=== PATIENT | male | born 1970 | race Caucasian/White ===

== ENCOUNTER 2021-04-07 15:29 | Outpatient (CLI) | payer OTHER, SELFPAY ==
--- NOTE | ~2021-04-07 | CT_ITS ---
EXAMINATION: CT soft tissue neck w con EXAM DATE: 04/07/2021 15:52 INDICATION: Left tonsillar mass . TECHNIQUE: Spiral CT of the neck was performed following intravenous injection of 75 mL Omnipaque 350 . Axial, coronal and sagittal images were reviewed. The dose-length product (DLP) for this examinat ion was 400.82 mGy-cm. The exposure was tailored according to patient size (auto mA exposure control ), and iterative reconstruction (ASIR) was used as additional dose reduction technique. There is no prior study for comparison. FINDINGS: The left tonsil is significantly enlarged, measuring 3.8 x 3.2 cm. The nasopharynx is unrem arkable. Largest lymph node identified is in the left internal jugular chain, level 2 measuring 1.5 x 1.1 cm. There are several other level 2 lymph nodes adjacent to it that are within normal size limit s but more prominent than contralateral side. The thyroid gland is unremarkable. The submandibular and parotid glands are symmetric. The superior mediastinum is unremarkable. The airway is unre markable. Parapharyngeal and pre-glottic fat planes are preserved. The opacified vasculature is p atent. The orbits are unremarkable. Mild ethmoid and maxillary sinus mucoperiosteal thickening. Lung apices are clear. There is mild to moderate cervical spondylosis. IMPRESSION: 1. Diffuse enlargement of left tonsil. Differential diagnosis includes squamous cell cancer, lymphoma . ENT consult for histologic correlation indicated. 2. Left level 2 lymphadenopathy. Reviewed, dictated and finalized at location A. IMPRESSION: 1. Diffuse enlargement of left tonsil. Differential diagnosis includes squamous cell cancer, lymphoma. ENT consult for histologic correlation indicated. 2. Left level 2 lymphadenopathy.
== END 2021-04-07 15:30 ==
LOC: MICIMG 15:30
PROVIDERS: Visit Provider Otolaryngology
DX: J35.8 Other chronic diseases of tonsils and adenoids (principal); R59.0 Localized enlarged lymph nodes
CPT/HCPCS: 70491; Q9967